=== PATIENT | male | born 1955 | race Caucasian/White ===

== ENCOUNTER 2023-05-23 08:38 | Day surgery (SDC) | payer OTHER ==
[2023-05-16 14:43] VITALS: BMI 25.0
[~2023-05-23 08:38] MED LIST: ATROPINE SULFATE 0.4 MG/ML 1 ML VIAL IM ONE; LIDOCAINE VISCOUS 300 MG/15 ML CUP MUCOUS MEM ONE; SODIUM CHLORIDE 0.9% 1,000 ML IV SCH
[2023-05-23] MEDS ORDERED: LACTATED RINGERS 1,000 ML IV ONE (09:10)
[2023-05-23] MEDS ORDERED: LACTATED RINGERS 1,000 ML IV SCH (09:19)
[2023-05-23] MEDS ORDERED: LIDOCAINE 1% (10MG/ML) FOR IV START INTRADERMA PRN (09:19)
[2023-05-23] MEDS ORDERED: NEOSTIGMINE 1 MG/ML 10 ML VIAL ONE (10:31)
[2023-05-23] MEDS ORDERED: MIDAZOLAM 2 MG/2 ML VIAL ONE (10:31)
[2023-05-23] MEDS ORDERED: ONDANSETRON 4 MG/2 ML VIAL ONE (10:31)
[2023-05-23] MEDS ORDERED: GLYCOPYRROLATE 0.2 MG/ML 2 ML VIAL ONE (10:31)
[2023-05-23] MEDS ORDERED: LIDOCAINE 2% INJ 20 MG/ML (2 ML VIAL) ONE (10:31)
[2023-05-23] MEDS ORDERED: SUCCINYLCHOLINE CHLORIDE 200 MG/10 ML VIAL IV ONE (10:31)
[2023-05-23] MEDS ORDERED: ROCURONIUM 10 MG/ML (5 ML VIAL) IV ONE (10:31)
[2023-05-23] MEDS ORDERED: PHENYLEPHRINE-0.9% NACL SYG 1,000 MCG/10 ML SYRINGE ONE (10:31)
[2023-05-23] MEDS ORDERED: PROPOFOL 10 MG/ML 20 ML VIAL IV ONE (10:31)
[2023-05-23] MEDS ORDERED: fentaNYL (PF) 50 MCG/ML 2 ML AMP ONE (10:31)
--- NOTE | 2023-05-23 10:44 | CT ---
EXAMINATION TYPE: CT Chest delio Kruse Protocol DATE OF EXAM: 05/23/2023 COMPARISON: None HISTORY: Navigational bronchoscopy CT DLP: 626 mGycm Automated exposure control for dose reduction was used. FINDINGS: Lobulated upper lobe mass measuring 3.3 x 2.4 cm. Subpleural nodularity in the right lower lobe measuring 9 mm. There is an additional left upper lobe pulmonary nodule measuring 9 mm. Multiple additional right superior segment right lower lobe pulmonary nodules are seen the largest me asuring 1.2 cm on axial image 21. There is a larger left lower lobe pulmonary mass measuring 2.5 cm. There is a large area of consolidation appears masslike in the left lower lobe measuring 8 cm. There is a small adjacent pleural effusion. Heart is enlarged there is atherosclerotic change aorta and coronary arteries. Trace pericardial flui d. There is pathologic adenopathy in mediastinum most noted in the AP window measuring 4.4 cm in short a xis. Numerous other enlarged lymph nodes are seen including the left hilum measuring short axis of 1. 6 cm. There is hypertrophic and degenerative changes of the spine. No definitive destructive lesions. There is a complicated lesion involving the upper pole the right kidney with calcification measuring 4.4 cm. Measures 42 Hounsfield units is not compatible simple cysts. There additionally is a calcific ation in the region of the paracaval region with abnormal soft tissue attenuation. Area of adenopathy not excluded. IMPRESSION: 1. MULTIPLE PULMONARY MASSES WITH PATHOLOGIC MEDIASTINAL AND HILAR LYMPHADENOPATHY SUSPICIOUS FOR MAL IGNANCY. 2. COMPLICATED UPPER POLE RIGHT RENAL MASS ONLY PARTIALLY INCLUDED ON EXAM BUT DOES NOT MEET THE CRIT ERIA OF A SIMPLE CYST. RECOMMEND CORRELATION WITH ULTRASOUND OR CAT SCAN TO ASSESS THE RIGHT KIDNEY F OR NEOPLASM
[2023-05-23 11:55] VITALS: TEMP 97.4
[2023-05-23 12:25] VITALS: RESP 16
--- NOTE | 2023-05-23 12:27 | PCN ---
PROCEDURE NOTE This is a Pulmonary/Critical Care procedure note. PROCEDURES PERFORMED: Navigational bronchoscopy with endobronchial transbronchial biopsies, endobronchial brushes, as well as transbronchial needle aspiration. ADMISSION NURSE: Dr. Donovan. There was informed consent and universal timeout. The patient's procedure was done in room #1. Dr. Fernando provided general anesthesia along with the CENTER RECEPTIONIST. PREOPERATIVE DIAGNOSIS: Probable kidney cancer with metastasis to the lungs. POSTOPERATIVE DIAGNOSIS: Probable kidney cancer with metastasis to the lungs. DESCRIPTION OF PROCEDURE: After the patient was adequately sedated and under the effects of general anesthesia and on the anesthesia machine, the bronchoscope was passed through the bronchoscope adapter connected to the endotracheal tube. Using the electromagnetic navigational bronchoscopy by [employer], we were able to do a transbronchial needle aspirations of subcarinal nodes. We made multiple passes, and there was no complication. We did get tissue. In addition, we attempted to use the navigational procedure to the navigation machine to biopsy a lesion in the right upper lobe, but could not localize this lesion, so no biopsies were done. In addition, there was an endobronchial lesion noted in the distal bronchus intermedius. We biopsied this lesion as well. This lesion looks suspicious for malignancy. Also, there was endobronchial disease in the left lower lobe. We did biopsies of this lesion in the left lower lobe as well, this was under direct visualization, and also did brushes and washes in the area of the left lower lobe. The patient tolerated the procedure well without complication. So, in review, we did endobronchial biopsies in the left lower lobe, brushes in the left lower lobe, and washes in the left lower lobe. There was a lesion obstructing the left lower lobe bronchus. In addition, we did endobronchial biopsies to the distal bronchus intermedius, and also transbronchial needle aspiration to the subcarinal node. The patient tolerated the procedure well. The patient's vital signs were stable throughout the procedure. All the material will be sent to the laboratory for analysis. There was no immediate complication. MMODL / IJN: [id number] /
[2023-05-23 12:46] VITALS: BP 117/66; PULSE 88
[2023-05-24 08:14] LABS: Appearance,BF Blood Tinged (Clear); RBC, Body Fluid 178750 (0-2000)
[2023-05-27 09:47] LABS: Nucleated Cells, Body Fluid 100 X 10*3/uL
== END 2023-05-23 12:57 | disposition home or self-care (01) ==
LOC: ORWHC2ENDO 08:38
PROVIDERS: ATTEND Internal Medicine Critical Care Medicine
DX: J98.4 Other disorders of lung (principal); I10 Essential (primary) hypertension; Z79.82 Long term (current) use of aspirin; Z79.899 Other long term (current) drug therapy
CPT/HCPCS: 88104; 88108; 88305; 89050; 87070; 87205; 87077; 87186; 71250; 31628; 31629; 31623; 31624; 31627; J2250; J0330; J2710; J2405; J3010; J2370; J2704; J2001

== ENCOUNTER → 2023-06-15 | Outpatient (CLI) | payer OTHER ==
--- NOTE | 2023-06-17 22:19 | PE ---
EXAMINATION TYPE: PET CT fusion skull to thigh DATE OF EXAM: 06/15/2023 COMPARISON: CT chest 05/23/2023 Prior PET/CT: None HISTORY: Solitary pulmonary nodule TECHNIQUE: Following the intravenous administration of 11.84 mCi of F-18 FDG, whole body images are performed from the skull base to the midthigh. Images are reviewed on the computer in the coronal, a xial, and sagittal planes. Reconstructed rotating images are created on independent workstation and reviewed on the computer. A localization and attenuation correction CT is performed in conjunction with the PET scan. DLP: 467.23 mGycm SCAN: Subsequent Blood glucose: 86 mg/dL Average Mediastinum SUV: 0.87 Average Liver SUV: 1.09 FINDINGS: NECK: No abnormal uptake THORAX: There is a focus of radiotracer within a mass adjacent to the aorta. Image 122. SUV measures 4.44. An additional focus of increased radiotracer is in the posterior lateral left lung. Image 113 S UV 4.24. Some additional uptake is within the mass, sample image 121 SUV 3.87 and more anteriorly 3.3 5. There is intermediate signal within the nodule within the lateral left lung base, image 120 SUV 1.2. Intermediate signal measuring 1.1 SUV is in the right posterior medial upper lung field, example imag e 84. Punctate nodule in the anterior right upper lung field image 81 has a density of 0.4. Nodule wi thin the anterior left midlung image 97 has an SUV of 0.3. Nodule within the lateral right lung image 23 has an SUV of 0.66 ABDOMEN: No abnormal uptake PELVIS: No abnormal uptake OSSEOUS STRUCTURES: No abnormal uptake Other: There are several areas of uptake which appear to be superficial on the right flank margin of uncertain etiology. Contamination is felt to be most likely previous appears to be external to the pa tient. Note is made of absence of significant radiotracer within the right kidney. LOCALIZATION CT: Right kidney appears atrophic. Prostate is prominent COMPARISON: Findings are similar to the recent CT IMPRESSION: 1. The left lower lobe lung mass has several smaller foci of uptake compatible with neoplasm. 2. There are multiple nodules and additional smaller masses within the bilateral lung corrales which aguirre ve low to intermediate nonsuspicious uptake. This may be low metabolic activity or nonneoplastic. 3. Scattered lymphadenopathy within the mediastinum without suspicious uptake.
== END | disposition home or self-care (01) ==
LOC: RADPETMAIN 11:36
PROVIDERS: ATTEND Internal Medicine Critical Care Medicine
DX: R91.8 Other nonspecific abnormal finding of lung field (principal); R59.0 Localized enlarged lymph nodes
CPT/HCPCS: 78815; A9552

== ENCOUNTER 2023-07-10 08:23 | Day surgery (SDC) | payer OTHER ==
[2023-07-10] MEDS ORDERED: HYDROmorphone 0.5 MG/0.5 ML SYRINGE IVP PRN (08:35)
[2023-07-10] MEDS ORDERED: ALPRAZolam 0.25 MG TAB PO PRN (08:35)
[2023-07-10 09:19] VITALS: TEMP 98.1
[2023-07-10 09:34] LABS: INR 1.1 (<1.2); Prothrombin Time 11.3 sec (9.0-12.0)
[2023-07-10 09:44] LABS: Mean Platelet Volume 7.9; Platelet Count 200 k/uL (150-450)
--- NOTE | 2023-07-10 10:45 | XR ---
EXAMINATION TYPE: XR chest 1V portable DATE OF EXAM: 07/10/2023 COMPARISON: 07/10/2023 HISTORY: Post lung biopsy TECHNIQUE: Single frontal view of the chest is obtained. FINDINGS: No sizable pneumothorax. Left lower lobe consolidation\mass and small effusion stable rela tive to the prior PET/CT of 06/15/2023. As the mediastinal and hilar prominence likely in the basis of adenopathy. Multiple pulmonary masses are seen. Underlying COPD and chronic interstitial lung diseas e suspected. IMPRESSION: No pneumothorax post lung biopsy.
--- NOTE | 2023-07-10 11:39 | CT ---
EXAMINATION TYPE: CT biopsy lung LT DATE OF EXAM: 07/10/2023 COMPARISON: 06/15/2023 HISTORY: Lung mass CT DLP: 728 mGycm The procedure is discussed with the patient, the risks, complications, benefits and alternatives, wer e discussed and any questions were answered. Informed consent was obtained. The patient is placed p yane on the CT table, prepped and draped in the usual sterile fashion. Utilizing a 22-gauge Chiba needle access into the left lower lobe mass was achieved with left lower l obe. Pathology confirmed adequate sample. All elements of maximal barrier technique were utilized. The patient remained stable throughout the procedure with no immediate postprocedural complication. IMPRESSION: 1. Successful CT guided fine needle aspiration of a left lower lobe lung mass
[2023-07-10 12:31] VITALS: BP 132/71; PULSE 99; RESP 18
--- NOTE | 2023-07-10 12:36 | XR ---
EXAMINATION TYPE: XR chest 1V portable DATE OF EXAM: 07/10/2023 COMPARISON: 07/10/2023 HISTORY: Postlung biopsy TECHNIQUE: Single frontal view of the chest is obtained. FINDINGS: No sizable pneumothorax. Left lower lobe consolidation mass and small effusion stable rela tive to the prior PET/CT of 06/15/2023. As the mediastinal and hilar prominence likely in the basis of adenopathy. Multiple pulmonary masses are seen. Underlying COPD and chronic interstitial lung diseas e suspected. IMPRESSION: 1. No pneumothorax. Stable multiple intrathoracic masses\adenopathy.
== END 2023-07-10 12:35 | disposition home or self-care (01) ==
LOC: RADPROMAIN 08:23
PROVIDERS: ATTEND Internal Medicine Critical Care Medicine
DX: R91.8 Other nonspecific abnormal finding of lung field (principal)
CPT/HCPCS: 32408; 36415; 71045; 85049; 85610; 88305

== ENCOUNTER 2023-07-15 09:46 | Day surgery (SDC) | payer OTHER ==
[2023-07-15 10:48] VITALS: TEMP 98
[2023-07-15] MEDS ORDERED: ATROPINE SULFATE 0.4 MG/ML 1 ML VIAL IM STA (11:12)
[2023-07-15 11:24] VITALS: RESP 16
[2023-07-15 12:30] VITALS: BP 148/68; PULSE 115
--- NOTE | 2023-07-15 12:42 | XR ---
EXAMINATION TYPE: XR chest 1V portable DATE OF EXAM: 07/15/2023 12:31 PM COMPARISON: Chest radiographs from 07/10/2023 TECHNIQUE: XR chest 1V portable Frontal view of the chest. CLINICAL INDICATION:Male, 68 years old with history of post left thoracentesis; FINDINGS: Lungs/Pleura: There remains small left pleural effusion. There is no evidence of right pleural effusi on, focal consolidation, or pneumothorax. Pulmonary vascularity: Unremarkable. Heart/mediastinum: Cardiomediastinal silhouette is unremarkable. Musculoskeletal: No acute osseous pathology. IMPRESSION: Small left pleural effusion no pneumothorax visualized.
[2023-07-16 03:22] LABS: Glucose, BF Source Pleural fluid; Glucose, Body Fluid 46 mg/dL; LDH, Body Fluid Source Pleural fluid; T. Protein, Body Fluid Source Pleural fluid; Total Protein, Body Fluid >3600 mg/dL
[2023-07-16 05:39] LABS: Appearance,BF Slightly Cloudy (Clear)
--- NOTE | 2023-07-17 15:29 | PCN ---
PROCEDURE NOTE PROCEDURE PERFORMED: Left-sided thoracentesis. PREOPERATIVE DIAGNOSIS: Left pleural effusion, rule out cancer. POSTOPERATIVE DIAGNOSIS: Left pleural effusion, rule out cancer. DESCRIPTION OF PROCEDURE: The posterior chest was marked by ultrasound. There were informed consent and universal time-out. The patient's procedure took place in third [facility]. Indication: Left pleural effusion. A time-out was completed verifying correct patient, procedure, site, positioning , and implant(s) or special equipment if applicable. Ultrasound guidance was used and appropriate fluid pocket was identified and marked. Patient was positioned, prepped and draped in usual sterile fashion. Lidocaine was used to anesthetize the area. A Thoracentesis catheter was introduced into the left pleural space, and 1600 mL of dark brown/bloody fluid was removed from the left pleural space. Blood loss was none. The patient tolerated the procedure well without any complications. The post-thoracentesis chest x-ray showed no evidence of pneumothorax. The fluid will be sent for analysis including cytology, microbiology, and chemistry. Chemistry will include glucose, protein, and LDH. Additional recommendations and suggestions are forthcoming. MMODL / IJN: [id number] /
== END 2023-07-16 10:17 | disposition home or self-care (01) ==
LOC: PROCWHC3 09:46
PROVIDERS: ATTEND Internal Medicine Critical Care Medicine
DX: J90 Pleural effusion, not elsewhere classified (principal); C64.9 Malignant neoplasm of unspecified kidney, except renal pelvis
CPT/HCPCS: 32555; 87798 ×3; 87496; 87498; 87529; 88108; 88305; 89050; 87502; 87634; 87070; 87205; 87075; 87116; 87102; 87206; 82945; 83615; 84157; 71045; 96372; 32554; J0461; 87252

== ENCOUNTER → 2023-07-15 | Outpatient (CLI) | payer OTHER ==
--- NOTE | 2023-07-15 10:54 | US ---
EXAMINATION TYPE: US chest DATE OF EXAM: 07/15/2023 COMPARISON: Chest radiograph same day. CLINICAL INDICATION: Male, 68 years old with history of J90 PLEURAL EFFUSION; SOB TECHNIQUE: Targeted ultrasound of the posterior lower Bilateral EXAM MEASUREMENTS: Right Pleural Effusion pocket size: 0 cm Left Pleural Effusion pocket size: 12 cm Left skin surface to fluid distance: 2.8 cm Left side marked for possible thoracentesis outside the dept. Pulmonologists are able to review the images in the patient?s EMR. IMPRESSIONS: Small left pleural effusion.
== END | disposition home or self-care (01) ==
LOC: RADUSWWP 09:15
PROVIDERS: ATTEND Internal Medicine Critical Care Medicine
DX: J90 Pleural effusion, not elsewhere classified (principal)
CPT/HCPCS: 76604

== ENCOUNTER → 2023-07-25 | Outpatient (CLI) | payer OTHER ==
[2023-07-25 16:07] LABS: African American GFR (CKD) 60 (>60 ml/min/1.73 sqM); Blood Urea Nitrogen 23 mg/dL (9-20); Non-African American GFR(CKD) 52 (>60 ml/min/1.73 sqM)
--- NOTE | 2023-07-26 08:31 | CT ---
EXAMINATION TYPE: CT chest w con CT DLP: 292.80 mGycm, Automated exposure control for dose reduction was used. DATE OF EXAM: 07/25/2023 4:32 PM COMPARISON: 07/10/2023 CT lung biopsy. PET/CT 06/15/2023. CLINICAL INDICATION:Male, 68 years old with history of R91.8 abn finding, abnormal lung exam and coug cheng TECHNIQUE: Multiple axial images were obtained through the chest. Sagittal and coronal reformats were created for review. Contrast used:80ml mL of Isovue 300 with IV Contrast (None if empty) Oral contrast used: (None if empty) FINDINGS: LUNGS/ PLEURA: Right upper lung dominant mass measuring 3.3 x 3.8 cm previously 3.0 x 3.4 cm. Additio nal scattered pulmonary nodules are seen throughout the lungs which appears stable from prior. There is a left sided small pleural effusion with associated atelectasis and consolidation changes. A nodul e seen in the left lung base anteriorly is surrounded by some consolidation changes. This limits eval uation for size on prior. AIRWAY: Patent and unremarkable. HEART: Size within normal limits. MEDIASTINUM: Enlarged lymph nodes within the thorax including the AP window measuring up to 3.7 cm, p reviously roughly similar given differences in measuring technique and slice selection. Right low par atracheal lymph node measuring 15 mm not significantly changed from prior. Right pulmonary hilum lymph node measuring up to 27 mm poorly delineated on prior PET without IV cont rast. VASCULATURE: No aortic aneurysm. MUSCULOSKELETAL: No acute osseous abnormalities SOFT TISSUES/LYMPH NODES: Unremarkable. LOWER NECK: No significant findings. UPPER ABDOMEN: Irregular appearance to the right kidney with mass partially visualized. IMPRESSION: 1. Overall the mediastinal lymph nodes appear grossly stable in size compared to PET/CT 06/06/2023. T he right upper lung dominant mass measures slightly larger. Other pulmonary nodules appear similar in size to prior. Findings could relate to #2 correlate with biopsy. 2. Partially visualized right renal mass similar to PET/CT, concerning for renal cell carcinoma with extension into the right renal vein. No other imaging of this is available besides the PET/CT withou t contrast. Consider CT/MRI renal mass protocol for further evaluation. 3. Left lower lung consolidation changes correlate for superimposed infection. There is small left p leural effusion. Findings communicated to Dr. Parminder Rivera DO on 07/26/2023 8:[address] Parminder Barboza.
== END | disposition home or self-care (01) ==
LOC: RADCTMAIN 15:28
PROVIDERS: ATTEND Internal Medicine Critical Care Medicine
DX: J90 Pleural effusion, not elsewhere classified (principal); N28.89 Other specified disorders of kidney and ureter; R91.8 Other nonspecific abnormal finding of lung field
CPT/HCPCS: 82565; 84520; 71260; 36415; Q9967

== ENCOUNTER 2023-08-01 12:34 | Day surgery (SDC) | payer OTHER ==
[2023-07-30 15:18] VITALS: BMI 24.4
[~2023-08-01 12:34] MED LIST changes: -ATROPINE SULFATE 0.4 MG/ML 1 ML VIAL IM ONE; +LACTATED RINGERS 1,000 ML IV SCH; -LIDOCAINE VISCOUS 300 MG/15 ML CUP MUCOUS MEM ONE; -SODIUM CHLORIDE 0.9% 1,000 ML IV SCH
[2023-08-01] MEDS ORDERED: ONDANSETRON 4 MG/2 ML VIAL ONE (13:08)
[2023-08-01] MEDS ORDERED: LIDOCAINE 1% (10MG/ML) FOR IV START INTRADERMA ONE (13:15)
[2023-08-01] MEDS ORDERED: DEXAMETHASONE SOD PHOSPHATE 4 MG/ML 1 ML VIAL IVP ONE (13:16)
--- NOTE | 2023-08-01 13:19 | CT ---
EXAMINATION TYPE: CT Chest delio Kruse Protocol DATE OF EXAM: 08/01/2023 COMPARISON: 05/23/2023 HISTORY: ION CHEST CT DLP: [address] of the chest was performed with lung and mediastinal window settings submitted for bron choscopic guidance.. The lack of contrast limits evaluation of the vascular, mediastinal and parench ymal structures including the upper abdomen. LUNGS: Right upper lobe mass seen medially measures approximately 3.1 x 2.3 cm. Several adjacent pulm onary nodules measuring 9.4 mm right upper lobe anteriorly and 1.2 cm right upper lobe. Several adjac ent smaller nodules are noted as well. Pulmonary nodule adjacent to the right heart border. Moderate left lower lobe opacity may reflect a combination of atelectasis and/or effusion. Additional underlyi ng mass is difficult to exclude given the lack of contrast. MEDIASTINUM/RUBY: Thoracic aorta is of normal caliber with limited evaluation given lack of contrast . The heart is not enlarged. AP window mediastinal mass measures 5 x 4.3 cm and may reflect conglome rate adenopathy. There is right paratracheal adenopathy noted as well as subcarinal adenopathy and pr obable right hilar adenopathy. UPPER ABDOMEN: Partially imaged and poorly characterized right renal mass. OTHER: No significant other abnormality. IMPRESSION: 1. Unenhanced CT for bronchoscopic assistance. 2 pulmonary right upper lobe mass as discussed with saroj maria. Conglomerate mass within the mediastinum felt to reflect adenopathy. Additional jt nopathy is noted.
[2023-08-01] MEDS ORDERED: ROCURONIUM 10 MG/ML (5 ML VIAL) IV ONE (14:22)
[2023-08-01] MEDS ORDERED: MIDAZOLAM 2 MG/2 ML VIAL ONE (14:22)
[2023-08-01] MEDS ORDERED: fentaNYL (PF) 50 MCG/ML 2 ML AMP ONE (14:22)
[2023-08-01] MEDS ORDERED: LIDOCAINE 2% INJ 20 MG/ML (2 ML VIAL) ONE (14:22)
[2023-08-01] MEDS ORDERED: SUCCINYLCHOLINE CHLORIDE 200 MG/10 ML VIAL IV ONE (14:22)
[2023-08-01] MEDS ORDERED: GLYCOPYRROLATE 0.2 MG/ML 2 ML VIAL ONE (14:22)
[2023-08-01] MEDS ORDERED: NEOSTIGMINE 1 MG/ML 10 ML VIAL ONE (14:22)
[2023-08-01] MEDS ORDERED: PROPOFOL 10 MG/ML 20 ML VIAL IV ONE (14:22)
--- NOTE | 2023-08-01 16:06 | FL ---
EXAMINATION TYPE: FL bronchoscopy DATE OF EXAM: 08/01/2023 COMPARISON: NONE HISTORY: TECHNIQUE: Fluoroscopy. FINDINGS: Fluoroscopic guidance was provided 2.4991 DAP IMPRESSION: As Above.
[2023-08-01 16:18] VITALS: TEMP 98
--- NOTE | 2023-08-01 16:21 | P.PCN ---
Date of Procedure: 08/01/23 Description of Procedure: Preoperative Diagnosis: Right upper lobe mass Left lower lobe atelectasis Mediastinal lymphadenopathy Postoperative Diagnosis: Right upper lobe mass Left lower lobe atelectasis, secondary to endobronchial tumor Mediastinal lymphadenopathy Procedure(s) Performed: Flexible bronchoscopy Robotic-assisted bronchoscopy and addition to radial ultrasound evaluation of the pulmonary mass in the right upper lobe Robotic-assisted transbronchial needle aspirate, transbronchial biopsies, transbronchial brushing of the right right upper lobe pulmonary mass in addition to a bronchioloalveolar lavage endobronchial biopsies, brushing and lavage of a EBUS TBNA of a station 4R left lower lobe mass and [address] Anesthesia: TRENT Surgeon: Austen Lemus Estimated Blood Loss (ml): 5cc Pathology: other Condition: stable Disposition: same day Operative Findings: A physical exam was performed. Informed consent was obtained from the patient after explaining all the risks (pneumothorax, life threatening bleeding, infection and adverse effects due to medications), benefits and alternatives to the procedure which the patient appeared to understand and so stated. The patient was connected to the monitoring devices. General anesthesia was induced and the patient was intubated by anesthesia. A final timeout was performed and the procedure confirmed by the attending staff bronchoscopist. The bronchoscope was inserted and the airway examined. The flexible bronchoscope was removed and the robotic bronchoscope was inserted. Complete airway examination was done. Examination of the right lung included the right mainstem bronchus, right upper lobe bronchus, bronchus intermedius, right middle lobe bronchus and the right lower lobe bronchus and the various 10 segments on the right and no significant abnormalities were identified. The bronchoscope was then removed to the left. Left mainstem bronchus and the left upper lobe bronchus was patent. Various segments in the left upper lobe and lingular segments were patent and within normal limits. Left lower lobe was obstructed with apparent necrotic endobronchial tumor and the various segments of the left lower lobe were not visualized. Registration was completed. I next guided the robotic bronchoscope using the navigation system into the right upper lobe posterior segment. Once in proper position, the bronchoscope was frozen. The radial EBUS probe was placed through the bronchoscope and confirmed abnormal u/s images vs normal lung. A needle was placed through the working channel and under fluoroscopic guidance, we sampled the area thought to have the mass twice. We then used a cloud biopsy pattern with ultrasound confirmation for 2 additional passes with the needle. U/S evaluation was then used to reconfirm location. Forceps were next in troduced through working channel and extended the appropriate distance and 6 transbronchial biopsies were performed using fluoroscopic guidance. The u/s probe was then reinserted to confirm location. When confirmed this process was repeated for a total of 6 transbronchial biopsies. After reassessment with EBUS, a brush was placed through the extendable working channel for 1 pass with fluoroscopic guidance. U/S evaluation was then used to confirm location. 40ml of saline was then instilled into the area of the lesion. The robotic bronchoscope was removed and the airway inspected with a flexible bronchoscope and 10 ml of effluent from the BAL was collected. The bronchoscope was then advanced to the left lower lobe. Left lower lobe bronchus was completely obstructed with an endobronchial tumor that was quite necrotic, irregular surface, pale looking and under direct visualization, endobronchial biopsies were done of the left lower lobe mass in addition to and the bronchial brushings and a bronchial lavage was also done with a total of 40 mL of fluid was infused into the left lower lobe and 20 mL was aspirated without any major difficulties. Fluoroscopic check for pneumothorax was negative upon completion of the procedure. There was 0 ml blood loss with the procedure. Following that, the endobronchial ultrasound was inserted for mediastinal lymph node evaluation. A complete examination is grossly patient's was done. The patient was found to have a 2.5 cm station 4R lymph node and 3.0 [address] Using a 22-gauge needle, transbronchial needle aspirate of the station 4R and 10R lymph node was done. A total of 3 passes were obtained from each station without any complications. Endobronchial ultrasound was removed. Flexible bronchoscope was inserted and regular suctioning was done. At the completion of the procedure, no residual secretions or bloody material within the airway. The bronchoscope was removed. The patient was extubated. FINDINGS: 1.The airways appeared normal 2 Successful navigation, ultrasonographic identification, and biopsies of right upper lobe pulmonary mass 3.The the radial ultrasound view was Concentric 4 TBNA of lymph node, station [address] 5 Biopsy of a left lower lobe mass under direct visualization RECOMMENDATIONS: Await pathology and cytology results The referring physician will be alerted to the results when available. The patient was advised to follow up with the referring physician with the biopsy results Patient will be called with results.
[2023-08-01] MEDS ORDERED: LACTATED RINGERS 1,000 ML IV ONE (16:45)
--- NOTE | 2023-08-01 16:48 | XR ---
EXAMINATION TYPE: XR chest 1V DATE OF EXAM: 08/01/2023 4:34 PM CLINICAL INDICATION:Male, 68 years old with history of post biopsy; COMPARISON: Chest radiographs from 07/07/2023. TECHNIQUE: XR chest 1V Frontal view of the chest. FINDINGS: Lungs/Pleura: Consolidation changes in the lung base. There is no evidence of pleural effusion, , or pneumothorax. Pulmonary vascularity: Unremarkable. Heart/mediastinum: Cardiomediastinal silhouette is unremarkable. Musculoskeletal: No acute osseous pathology. IMPRESSION: Similar left lower lung consolidation and/or airspace opacities. No evidence of pneumothorax.
[2023-08-01 17:03] VITALS: RESP 18
[2023-08-01 17:10] VITALS: BP 149/79; PULSE 112
== END 2023-08-01 17:30 | disposition home or self-care (01) ==
LOC: ORWHC2ENDO 12:34
PROVIDERS: ATTEND Internal Medicine Critical Care Medicine
DX: C79.02 Secondary malignant neoplasm of left kidney and renal pelvis (principal); C79.01 Secondary malignant neoplasm of right kidney and renal pelvis; J98.11 Atelectasis; N28.89 Other specified disorders of kidney and ureter; I10 Essential (primary) hypertension; A49.01 Methicillin susceptible Staphylococcus aureus infection, unspecified site; Z79.899 Other long term (current) drug therapy; Z87.891 Personal history of nicotine dependence; Z79.82 Long term (current) use of aspirin
CPT/HCPCS: 71045; 71250; 31628; 31629; 31625; 31623; 31624; 31652; J2250; J0330; J1100; J2710; J2405; J3010; J2704; J2001; S2900; 88104; 88108; 88305; 88341; 88342

== ENCOUNTER → 2023-11-19 | Outpatient (CLI) | payer OTHER ==
[2023-11-19 12:08] LABS: African American GFR (CKD) 72 (>60 ml/min/1.73 sqM); Blood Urea Nitrogen 21 mg/dL (9-20); Non-African American GFR(CKD) 62 (>60 ml/min/1.73 sqM)
--- NOTE | 2023-11-23 10:40 | CT ---
EXAMINATION TYPE: CT chest w con CT DLP: 307.50 mGycm, Automated exposure control for dose reduction was used. DATE OF EXAM: 11/19/2023 12:24 PM COMPARISON: CT chest with contrast 07/25/2023 . CLINICAL INDICATION:Male, 68 years old with history of C64.1 renal ca; PHH, obs for mets, rt renal ca , hypertension TECHNIQUE: Multiple axial images were obtained through the chest. Sagittal and coronal reformats were created for review. Contrast used:90ml mL of Isovue 300 with IV Contrast (None if empty) Oral contrast used: (None if empty) FINDINGS: LUNGS/ PLEURA: Slight decrease in size of small to moderate left pleural effusion. No right pleural e ffusion or pneumothorax seen. Improved aeration of the left lower lobe with some residual opacity suggesting atelectasis/consolidat ion. Inferior left upper lobe is better aerated, with the pulmonary nodule in the area now much tara r seen and looks to be smaller as described below. No acute lung infiltrate. There are areas of mild subpleural reticulation which may reflect scarring and/or subsegmental atelectasis. Nodules/masses: Right upper lobe solid mass measuring 2.1 x 1.9 cm image 22 series 4, was 3.8 x 3.3 c m. A 0.3 cm nodule right upper lobe image 19, was 0.8 cm. Nodule superior segment right lower lobe po sterior subpleural is 0.7 cm image 25, versus 1.15 cm before. Another immediately adjacent nodular de nsity anteriorly is no longer perceptible, and was 0.8 cm. A 0.8 cm subpleural semicircular nodule la terally in the right lower lobe on image 35 is stable. A posterior right lower lobe nodule image 44 m easures 0.9 cm, was 1.3 cm. Other nearby tiny nodular densities appear slightly smaller. In the mid left upper lobe, reference image 29, the previous nodule (prior image 25) is no longer see n, and had measured 1 cm. In the inferior left upper lobe, there is a 1.5 x 1.3 cm nodule image 45, which was partially obscure d by greater atelectasis on the prior exam but was about 2.9 x 2.8 cm. No new nodule, mass, or consol idation is seen. AIRWAY: Central airways are patent. Left lower lobe bronchi taper into the areas of consolidated lung . LOWER NECK: Unremarkable thyroid. Small lymph nodes seen, appear less prominent and conspicuous than before.. MEDIASTINUM: Overall the mediastinal and right hilar adenopathy has decreased in size. For example, a n AP window node seen on the left image 24 measures 1.7 cm short axis and was previously 3.7 cm. Righ t lower anterior paratracheal node is 1.2 cm and was 1.6 cm. Right hilar node measuring 1.9 cm, was 2 .7 cm before. Multiple nonenlarged nodes in the mid to superior mediastinum, appear decreased size an d conspicuity from prior. No new or enlarging adenopathy is shown. HEART: Mild to moderate cardiomegaly. Mild to moderate coronary artery calcification and/or stents. T here is a small pericardial effusion. VASCULATURE: Mild atherosclerotic calcifications of the aorta and branches. Ascending aorta is 3.3 C M, descending is 2.9 CM. Aorta is considered mildly ectatic in the ascending segment. Main pulmonar y trunk is enlarged at 3.4 cm. Vessels otherwise not further assessed without contrast. SOFT TISSUES/LYMPH NODES: Similar mild bilateral gynecomastia. No new or enlarging chest wall mass or adenopathy. UPPER ABDOMEN: Partially redemonstrated is enlarged, engorged IVC with multiple very prominent and en hancing serpentine structures in the right renal fossa, which could be vessels related to hypervascul ar tumor. There is a small radiodensity seen in the region which may be postprocedural. Only a small portion of the known right renal mass is seen. MUSCULOSKELETAL: No acute osseous abnormality. Mild disc degeneration changes are present throughout the included thoracolumbar spine. IMPRESSION: 1. Overall findings are consistent with a significant favorable response to therapy. 2. Multiple bilateral pulmonary nodules and masses, have decreased in size. No new or enlarging nodu les. 3. Decreased size of multiple previously enlarged mediastinal and right hilar nodes. No new or enlar ging nodes. 4. Slight decrease in size of small to moderate left pleural effusion. The left lower lobe and infer ior portion of the left upper lobe appear better aerated. 5. Dilated pulmonary artery, can be seen with pulmonary hypertension. 6. Partially visualized right upper quadrant hypervascularity and right renal mass. If this has not already been fully evaluated, dedicated MRI or CT of the kidneys would be advised.
== END | disposition home or self-care (01) ==
LOC: RADCTMAIN 11:28
PROVIDERS: ATTEND Internal Medicine Hematology & Oncology
DX: C64.1 Malignant neoplasm of right kidney, except renal pelvis (principal); R91.8 Other nonspecific abnormal finding of lung field; J90 Pleural effusion, not elsewhere classified; N28.89 Other specified disorders of kidney and ureter; I27.20 Pulmonary hypertension, unspecified
CPT/HCPCS: 82565; 84520; 71260; 36415; Q9967

== ENCOUNTER → 2024-02-27 | Outpatient (CLI) | payer OTHER ==
[2024-02-27 12:41] LABS: African American GFR (CKD) 81 (>60 ml/min/1.73 sqM); Blood Urea Nitrogen 26 mg/dL (9-20); Non-African American GFR(CKD) 70 (>60 ml/min/1.73 sqM)
--- NOTE | 2024-02-27 14:14 | CT ---
EXAMINATION TYPE: CT chest w con DATE OF EXAM: 02/27/2024 COMPARISON: 12-11 HISTORY: Renal cell ca CT DLP: 299.7 mGycm, Automated exposure control for dose reduction was used. CONTRAST: Performed injected with 100 mL of Isovue 300. TECHNIQUE: Axial images were obtained at 5 mm thick sections. Reconstructed images are reviewed on [employer] computer in the coronal plane. FINDINGS: Portion of the thyroid visualized is normal. There may be a punctate 0.3 cm nodule anterior right upper lobe. Series 3 image 20. This was present previously. A 2.0 cm nodules in the posterior medial right upper lung field. Series 3 image 20. This appears stab le. 0.6 cm subpleural nodule right lateral lung base appears stable, series 3 image 35. There is a left lower lobe consolidation with air bronchograms. Underlying masses within the differen tial. This area is present previously and appears stable. Previous pleural effusion is evident. A 1.5 cm right hilar lymph node is present. There is a 0.9 cm pretracheal lymph node present. The asc ending aorta diameter at the level of the main pulmonary artery is 3.7 cm. The main pulmonary artery diameter at the bifurcation is 3.2 cm. Moderate to large pericardial effusion is present. Limited CT sections are obtained through the upper abdomen. There is a 3.6 cm cystlike area on the po sterior right upper pole kidney. Right upper pole has an irregular enhancing mass within the field-of -view. Finding is stable from comparison. Left kidney appears normal. IMPRESSION: 1. Stable appearance of left lower lobe consolidation. Underlying mass may be present. 2. Stable small left pleural effusion. 3. Large pericardial effusion. 4. Scattered stable lung nodules
== END | disposition home or self-care (01) ==
LOC: RADCTMAIN 11:56
PROVIDERS: ATTEND Internal Medicine Hematology & Oncology
DX: C64.1 Malignant neoplasm of right kidney, except renal pelvis (principal); D69.59 Other secondary thrombocytopenia; I10 Essential (primary) hypertension; J90 Pleural effusion, not elsewhere classified; I31.39 Other pericardial effusion (noninflammatory); R91.8 Other nonspecific abnormal finding of lung field
CPT/HCPCS: 82565; 84520; 71260; 36415; Q9967

== ENCOUNTER → 2024-03-04 | Outpatient (CLI) | payer OTHER ==
--- NOTE | 2024-03-04 17:50 | CA ---
Transthoracic Echo Report Name: Rony Medina Age: 68 Gender: M : 1955 Exam Date: 03/04/2024 13:55 Exam Location: [facility] Ht (in): 72 Wt (lb): 165 Ordering Physician: Lori Lewis MD Attending/Referring Phys: Lori Lewis MD Playground Attendant Aranza Garrido RDCS Procedure CPT: Indications: Z01.818 ENCOUNTER FOR OTHER PREPROCEDURAL EXAMINAT Cardiac Hx: Technical Quality: Good Contrast 1: Total Dose (mL): Contrast 2: Total Dose (mL): MEASUREMENTS (Male / Female) Normal Values 2D ECHO LV Diastolic Diameter PLAX 6.3 cm 4.2 - 5.9 / 3.9 - 5.3 cm LV Systolic Diameter PLAX 5.5 cm IVS Diastolic Thickness 1.8 cm 0.6 - 1.0 / 0.6 - 0.9 cm LVPW Diastolic Thickness 1.3 cm 0.6 - 1.0 / 0.6 - 0.9 cm LV Relative Wall Thickness 0.5 RV Internal Dim ED PLAX 4.4 cm LV Diastolic Volume MOD 4C 217.2 cm??? LV Systolic Volume MOD 4C 120.8 cm??? LV Ejection Fraction MOD 4C 44.4 % LV Cardiac Index MOD 4C 4847.0 cm???/min???m??? LV Diastolic Length 4C 8.9 cm LV Systolic Length 4C 7.3 cm LA Volume 114.1 cm??? 18 - 58 / 22 - 52 cm??? LA Volume Index 58.6 cm???/m??? 16 - 28 cm???/m??? M-MODE LV Diastolic Diameter MM 6.9 cm 4.2 - 5.9 / 3.9 - 5.3 cm LV Systolic Diameter MM 5.5 cm LV Cardiac Index MM Teich 5169.6 cm???/min???m??? IVS Diastolic Thickness MM 1.6 cm 0.6 - 1.0 / 0.6 - 0.9 cm LVPW Diastolic Thickness MM 1.5 cm 0.6 - 1.0 / 0.6 - 0.9 cm LV Relative Wall Thickness MM 0.4 0.24 - 0.42 / 0.22 - 0.42 LV Mass Index MM 282.5 g/m??? 49 - 115 / 43 - 95 g/m??? Aortic Root Diameter MM 3.1 cm LA Systolic Diameter MM 5.3 cm LA Ao Ratio MM 1.7 AV Cusp Separation MM 2.4 cm DOPPLER AV Peak Velocity 226.8 cm/s AV Peak Gradient 20.6 mmHg AV Mean Velocity 145.4 cm/s AV Mean Gradient 9.5 mmHg AV Velocity Time Integral 38.2 cm LVOT Peak Velocity 155.1 cm/s LVOT Peak Gradient 9.6 mmHg LVOT Velocity Time Integral 23.7 cm MV Peak Velocity 158.4 cm/s MV Peak Gradient 10.0 mmHg MV Mean Velocity 114.3 cm/s MV Mean Gradient 5.9 mmHg MV Velocity Time Integral 30.0 cm MV Area PHT 4.1 cm??? Mitral E Point Velocity 173.6 cm/s Mitral A Point Velocity 0.6 cm/s Mitral E to A Ratio 291.9 MV Deceleration Time 185.3 ms MV E' Velocity 10.0 cm/s Mitral E to MV E' Ratio 17.3 TR Peak Velocity 330.5 cm/s TR Peak Gradient 43.7 mmHg Right Atrial Pressure 20.0 mmHg Pulmonary Artery Systolic Pressu 63.7 mmHg Right Ventricular Systolic Press 63.7 mmHg FINDINGS Left Ventricle Severely increased left ventricular mass. Mildly decreased fractional shortening. Moderately decreased midwall fractional shortening. Mildly increased left ventricular diastolic diameter. Moderately increased left ventricular wall thickness. Reduced global left ventricular systolic function. Left ventricular ejection fraction is estimated at-40 %. Abnorma LV global strain 11.3% Right Ventricle Moderate right ventricular dilatation. Severe pulmonary hypertension. Right ventricular systolic pressure estimated at 64 mm hg. Right Atrium Mild right atrial dilatation. Left Atrium Severely increased left atrial volume. Moderately increased left atrial area. Mitral Valve Structurally normal mitral valve. [id number] mitral regurgitation. Posteriorly directed mitral regurgitation jet. Aortic Valve Trileaflet aortic valve. No aortic valve stenosis or regurgitation. Tricuspid Valve Structurally normal tricuspid valve. [id number] tricuspid regurgitation. Pulmonic Valve Structurally normal pulmonic valve. Trace pulmonic regurgitation. Pericardium Small pericardial effusion. No Respiratory variation of tricuspid flow and of mitral flow. Aorta Normal size aortic root and proximal ascending aorta. CONCLUSIONS Moderate LV systolic dysfunction with an ejection fraction of 40% Moderate to severe mitral regurgitation Mild to moderate tricuspid regurgitation Moderate amount of pericardial effusion without any evidence of [place] not Previewed by: Dr. Hal Hussein MD (Electronically Signed) Final Date: 04 March 2024 17:49
== END | disposition home or self-care (01) ==
LOC: RADECHMAIN 13:34
PROVIDERS: ATTEND Internal Medicine Hematology & Oncology
DX: Z01.810 Encounter for preprocedural cardiovascular examination (principal); I34.0 Nonrheumatic mitral (valve) insufficiency; I36.1 Nonrheumatic tricuspid (valve) insufficiency; I31.39 Other pericardial effusion (noninflammatory); I51.89 Other ill-defined heart diseases
CPT/HCPCS: 93306

== ENCOUNTER → 2024-05-26 | Outpatient (CLI) | payer OTHER ==
[2024-05-26 11:17] LABS: African American GFR (CKD) 76 (>60 ml/min/1.73 sqM); Blood Urea Nitrogen 43 mg/dL (9-20); Non-African American GFR(CKD) 66 (>60 ml/min/1.73 sqM)
--- NOTE | 2024-06-02 12:49 | CT ---
EXAMINATION TYPE: CT ChestAbdPelvis w con DATE OF EXAM: 05/26/2024 INDICATION: Renal cell ca COMPARISON: CT DLP: 800.4 mGycm CONTRAST: Performed with Oral Contrast and with IV Contrast, patient injected with 100ml mL of Isovue 300. TECHNIQUE: Axial images at 5 mm thick sections. Reconstructed images in the coronal plane. Delayed images through the kidneys. FINDINGS: CT CHEST: Portion of the thyroid visualized is normal. There is a 1.0 cm long density in the posterior left upper lung field. This is new from comparison at electasis or metastasis could be considered. Bibasilar dependent traits are present, likely on the ba sis of atelectasis. Small left pleural effusion is present. There is a consolidation with air broncho grams in the left base, present previously. No enlargement is evident. There is a 1.5 cm right hilar node. This was present previously and is stable. Subcarinal increased d ensity is present. A 1.3 cm lymph node may be present. This is smaller than comparison left infrahila r soft tissue density 0.1 cm. This is smaller than comparison Multiple small lymph nodes are present. The ascending aorta diameter at the level of the main pulmonary artery is 3.4 cm. The main pulmonary artery diameter at the bifurcation is 3.2 cm. Small pericardial effusion is presentrrr CT ABDOMEN: Liver: Normal Spleen: Normal Pancreas: Normal Adrenal glands: The adrenal glands are normal. Gallbladder: Normal Kidneys: No masses are evident. There is a 0.2 cm calcification upper pole right kidney. There is benito e surrounding hypodensity. This could be focal hydronephrosis cyst. There appears to be some delayed excretion on the right kidney compared to the left. Left renal cortical cyst is present in the mid medial portion measuring 1.7 cm. Delayed images were obtained through the kidneys, which remain othe rwise unremarkable. Aorta: Vascular calcification is within the aorta. Inferior vena cava: Normal. CT PELVIS: Periaortic adenopathy is presentr which is not enlarged by measurement criteria. Some retr ocaval adenopathy appears to be present. There is an enlarged retrocrural lymph node measuring 0.9 cm . Normal less than 0.5 cm. This may be new comparison. There is some moderate free fluid within the pelvis. Loops of bowel within the abdomen and pelvis are normal. There are loops of bowel which are incom pletely distended or lack oral contrast limiting their evaluation. Appendix: Normal as visualized. Urinary bladder: Normal. Genitourinary structures: Prostate is prominent is inferior impression on the urinary bladder. Osseous structures: No suspicious lytic or sclerotic lesions. IMPRESSION: 1. There is some increasing periaortic adenopathy. A new enlarged lymph nodes in the retrocrural spac e. Hilar and mediastinal adenopathy present previously appear stable. 2. Some improvement of the consolidation in the left lower lobe. 3. Delayed excretion from the right kidney. Kidney appears somewhat atrophic. Findings are stable fro m comparison. 3. Prominent prostate with some inferior impression on the urinary bladder. 4. Moderate free fluid within the pelvis. Some minimal ascites in the upper abdomen. 5 small bilatera l pleural effusions with adjacent compressive atelectasis.
== END | disposition home or self-care (01) ==
LOC: RADCTMAIN 10:43
PROVIDERS: ATTEND Internal Medicine Hematology & Oncology
DX: J90 Pleural effusion, not elsewhere classified (principal); J98.11 Atelectasis; N32.89 Other specified disorders of bladder; C64.1 Malignant neoplasm of right kidney, except renal pelvis; I31.39 Other pericardial effusion (noninflammatory); I34.0 Nonrheumatic mitral (valve) insufficiency; D69.59 Other secondary thrombocytopenia; R18.8 Other ascites; R94.4 Abnormal results of kidney function studies
CPT/HCPCS: 82565; 84520; 71260; 74177; 36415; Q9967

== ENCOUNTER → 2024-09-08 | Outpatient (CLI) | payer OTHER ==
[2024-09-08 11:24] LABS: African American GFR (CKD) 85 (>60 ml/min/1.73 sqM); Blood Urea Nitrogen 38 mg/dL (9-20); Non-African American GFR(CKD) 74 (>60 ml/min/1.73 sqM)
--- NOTE | 2024-09-08 15:29 | CT ---
EXAMINATION TYPE: CT ChestAbdPelvis w con CT DLP: 742.40 mGycm, Automated exposure control for dose reduction was used. DATE OF EXAM: 09/08/2024 12:54 PM COMPARISON: CT chest and pelvis 05/26/2024, CT chest 02/27/2024, 11/19/2023, 08/01/2023, 07/25/2023, PET/CT CLINICAL INDICATION:Male, 69 years old with history of C64.1 renal cell ca; PHH, Hx renal cell ca. Ro utine follow up Technique: Multiple axial images of the chest, abdomen, and pelvis were obtained following the intrav enous administration of 100 mL Isovue-300. Oral contrast was administered. Two-dimensional coronal an d sagittal reconstructions were obtained. Findings: CHEST: LUNGS/ PLEURA: No pneumothorax. Decrease trace left pleural effusion. Development of bilateral lower lobe consolidation with air bronchograms. New left apical nodular densities measuring 1.2 cm (series 4, image 13) and pleural-based left apical measure 1.6 cm (series 4, series 13). Right upper lobe nod ular density measuring 8 mm (series 4, 17). Additional patchy peripheral nodular densities identified within the posterior bilateral upper lobes and superior segments of the lower lobes. AIRWAY: Patent and unremarkable.. HEART: Moderate cardiomegaly. No pericardial effusion. MEDIASTINUM: Stable enlarged right hilar 1.6 cm lymph node. Additional few mildly prominent/enlarged mediastinal lymph nodes. VASCULATURE: No aortic aneurysm. Reflux of contrast into the IVC. MUSCULOSKELETAL: No acute osseous abnormalities. SOFT TISSUES/LYMPH NODES: Unremarkable. LOWER NECK: No significant findings. ABDOMEN: ABDOMEN LIVER: Unremarkable GALLBLADDER AND BILE DUCTS: Unremarkable. PANCREAS: Unremarkable. SPLEEN: Unremarkable. ADRENAL GLANDS: Unremarkable. KIDNEYS AND URETERS: No evidence of hydronephrosis and no left renal calculi. Stable medial left christal l 1.6 cm cyst. Nonobstructive right upper pole 4 mm calculus. Similar abnormal appearance of the right kidney with atrophy. Similar right upper pole 3.7 cm lesion not consistent with a simple cyst. Prominent enhancing right arterial and venous vasculature. Multipl e surrounding collateral vessels identified. PELVIS BLADDER: Incompletely distended but grossly unremarkable. REPRODUCTIVE: Prostate is enlarged in size measuring 5.8 cm in transverse dimension. This indents upo n the urinary bladder base. ABDOMEN & PELVIS STOMACH AND BOWEL: Stomach and duodenum are unremarkable. Enteric contrast reaches the rectum. No foc al bowel wall thickening or surrounding inflammatory changes. No evidence of bowel obstruction. PERITONEUM: No evidence of pneumoperitoneum or free fluid. VASCULATURE: Mild the moderate atherosclerotic calcifications are present throughout the abdominal ao rta and its branches. Pelvic phleboliths. Dilated IVC. MUSCULOSKELETAL: No acute osseous abnormalities. Similar indeterminate patchy sclerotic appearance in volving the left iliac crest. No new suspicious osseous lesions. LYMPH NODES: No evidence for lymphadenopathy. SOFT TISSUE/ABDOMINAL WALL: Unremarkable IMPRESSION: 1. New scattered nodular opacities within the upper lungs. Development of bilateral lower lobe consol idation with air bronchograms. Raises concern for metastasis and/or infectious/inflammatory process. Consider further evaluation with PET/CT. 2. Decrease trace left pleural effusion. 3. Similar mediastinal and right hilar adenopathy from most recent CT however decreased from prior PE T/CT. Demonstrated low-level FDG uptake in prior PET/CT. 4. Similar abnormal appearance to the right kidney with atrophy and right upper pole lesion not consi stent with a cyst. Similar enhancing dilated renal artery and veins with surrounding collaterals and dilated IVC. Highly concerning for arteriovenous malformation. Reported history of renal cell carcino ma. Difficult to tell reported renal cell carcinoma without remote prior contrast imaging. Demonstrat ed low level uptake on prior PET/CT. 5. Cardiomegaly with findings suggesting right heart dysfunction. 6. Prostatomegaly. [facility], , 09/08/2024 3:27 PM
== END | disposition home or self-care (01) ==
LOC: RADCTMAIN 10:44
PROVIDERS: ATTEND Internal Medicine Hematology & Oncology
CPT/HCPCS: 36415; 71260; 74177; 82565; 84520

== ENCOUNTER → 2024-10-21 | Outpatient (CLI) | payer OTHER ==
[2024-10-21 11:06] LABS: African American GFR (CKD) >90 (>60 ml/min/1.73 sqM); Blood Urea Nitrogen 29 mg/dL (9-20); Non-African American GFR(CKD) 82 (>60 ml/min/1.73 sqM)
--- NOTE | 2024-10-22 19:50 | CT ---
EXAMINATION TYPE: CT chest w con DATE OF EXAM: 10/21/2024 11:27 AM COMPARISON: 09/08/2024 CLINICAL INDICATION: Male, 69 years old with history of C64.1 KIDNEY CANCER, KIDNEY CA TECHNIQUE: Axial images were obtained at 5 mm thick sections. Reconstructed images are reviewed on t he computer in the coronal plane. Contrast used:100 mL of Isovue 300 with IV Contrast, (none if empty) Oral contrast used: (none if empty) CT DLP: 255.1 mGycm, Automated exposure control for dose reduction was used. FINDINGS: Portion of the thyroid visualized is normal. Bibasilar consolidations are present present previously with a similar appearance. Fibrosis and neopl asm within the differential some pleural thickening is present on right, present previously. There is some irregular densities within the posterior left apex. These appear somewhat smaller than the comparison study. There is a 1.0 cm right hilar lymph node present. Adjacent similar sized lymph node may be present. T his appears to be present previously and appears smaller on the current exam. The ascending aorta diameter at the level of the main pulmonary artery is 3.9 cm. The main pulmonary artery diameter at the bifurcation is 3.[address] sections are obtained through the upper abdomen. There may be a infarcted upper pole left kidney. This could be related to the patient's known renal cancer. There is a cystlike area measuring 3.2 cm the superior pole. This was present previously measuring 3.7 cm. Right kidney appearance is s imilar to the comparison There is persistent dilatation of the inferior vena cava near the diaphragm. IMPRESSION: 1. Mild prominence of right hilar lymphadenopathy, diminished in size from comparison. 2. Stable appearance of the right kidney. 3. Previous left apical densities are smaller than on the comparison. 4. No new suspicious changes to suggest new metastatic disease. [facility], Workstation: [id number], 10/22/2024 7:48 PM
== END | disposition home or self-care (01) ==
LOC: RADCTMAIN 10:11
PROVIDERS: ATTEND Internal Medicine Hematology & Oncology
DX: I31.39 Other pericardial effusion (noninflammatory) (principal); I34.0 Nonrheumatic mitral (valve) insufficiency; C64.1 Malignant neoplasm of right kidney, except renal pelvis; D69.59 Other secondary thrombocytopenia; R59.0 Localized enlarged lymph nodes
CPT/HCPCS: 82565; 84520; 71260; 36415; Q9967

== ENCOUNTER → 2025-01-12 | Outpatient (CLI) | payer OTHER ==
[2025-01-12 11:46] LABS: African American GFR (CKD) 78 (>60 ml/min/1.73 sqM); Blood Urea Nitrogen 36 mg/dL (9-20); Non-African American GFR(CKD) 67 (>60 ml/min/1.73 sqM)
--- NOTE | 2025-01-12 13:58 | CT ---
EXAMINATION TYPE: CT ChestAbdPelvis w con DATE OF EXAM: 01/12/2025 12:35 PM COMPARISON: 10/21/2024 CLINICAL INDICATION: Male, 69 years old with history of C64.1 MALIGNANT NEOPLASM OF RIGHT KIDNEY, EXC EPT R, f/u renal ca TECHNIQUE: CT ChestAbdPelvis w con , with sagittal coronal reformats. If MIP/3-D images were created, there are created on a separate workstation. Contrast used:100 mL of Isovue 300 with IV Contrast, (none if empty) Oral contrast used: without Oral Contrast (none if empty) CT DLP: 786.5 mGycm, Automated exposure control for dose reduction was used. FINDINGS: CT CHEST: Portion of the thyroid visualized is normal. There may be some atelectatic changes at the left base. Some bronchiectasis may be present at the rig ht lung base. Some pulmonary fibrosis could be considered. Findings were present previously and appea rs similar. Mild atelectasis within the dependent right lung base. A prior medial left apical density has diminished in size over the interval. Right hilar lymph node has enlarged to 1.4 cm. Previous 1.1 cm. The ascending aorta diameter at the level of the main pulmonary artery is 3.6 cm. The main pulmonary artery diameter at the bifurcation is 3.[address] ABDOMEN: Liver: Normal Spleen: Normal Pancreas: Normal Adrenal glands: The adrenal glands are normal. Gallbladder: Normal Kidneys: No hydronephrosis is present. Right kidney appears irregular. There is a large complex richar earing hypodense mass at the superior medial pole measuring 3.7 cm. This has enlarged from comparison . Previous measurement 3.2 cm Aorta: Vascular calcification is within the aorta. Inferior vena cava: Normal. CT PELVIS: Loops of bowel within the abdomen and pelvis are normal. The study is without oral contrast limit ing bowel evaluation. Appendix: Normal as visualized. Urinary bladder: Normal. Genitourinary structures: Very large prostate which has inferior impression on the urinary bladder. Osseous structures: No suspicious lytic or sclerotic lesions. IMPRESSION: 1. Complex mass right renal mass has enlarged from comparison. 2. Enlarging right hilar lymph node. 3. Left apical density has diminished from comparison [facility], , 01/12/2025 1:56 PM
== END | disposition home or self-care (01) ==
LOC: RADCTMAIN 11:00
PROVIDERS: ATTEND Internal Medicine Hematology & Oncology
DX: C64.1 Malignant neoplasm of right kidney, except renal pelvis (principal); N28.89 Other specified disorders of kidney and ureter; R59.9 Enlarged lymph nodes, unspecified; D69.59 Other secondary thrombocytopenia; I34.0 Nonrheumatic mitral (valve) insufficiency; I31.39 Other pericardial effusion (noninflammatory); I10 Essential (primary) hypertension
CPT/HCPCS: 82565; 84520; 71260; 74177; 36415; Q9967

== ENCOUNTER → 2025-04-06 | Outpatient (CLI) | payer OTHER ==
[2025-04-06 14:02] LABS: African American GFR (CKD) 73 (>60 ml/min/1.73 sqM); Blood Urea Nitrogen 33 mg/dL (9-20); Non-African American GFR(CKD) 63 (>60 ml/min/1.73 sqM)
--- NOTE | 2025-04-06 15:58 | CT ---
EXAMINATION TYPE: CT ChestAbdPelvis w con DATE OF EXAM: 04/06/2025 COMPARISON: 01/12/2025 CLINICAL INDICATION: Male, 69 years old with history of C64.[address] DLP: 985.10 mGycm Automated exposure control for dose reduction was used. CONTRAST: CT scan of the chest, abdomen and pelvis is performed with Oral Contrast and with IV Contrast, patien t injected with 100 ml mL of Isovue 300. FINDINGS: CT chest: There is a stable 14 mm pleural-based nodule/mass in the right upper lobe medially. There are a few s mall stable groundglass opacities in the left upper lobe. There is marked chronic interstitial scarring and atelectasis with marked bronchiectasis in the left lower lobe. There are mild apical interstitial changes with mild bronchiectasis in the right lower lo be. There is no pleural effusion or pneumothorax. There is a stable 22 mm right hilar lymph node. There is no mediastinal adenopathy. There are no focal osseous lesions. . CT abdomen and pelvis: Gallbladder is normal without distention, pericholecystic fluid, wall thickening or gallstone. There is no biliary ductal dilatation. There is no focal mass or organomegaly involving the liver, pancreas, spleen or adrenal glands.. The large heterogeneous, partly hypodense, partially calcified right renal mass extending to the inf erior vena cava is again seen and stable. Greatest dimension is stable and measures approximately 6.5 cm. It is highly suspicious for malignancy. There are no left renal calcifications, solid left renal masses or hydronephrosis. There is no definite retroperitoneal adenopathy. The bowel loops are normal in caliber and there is no dilatation or obstruction. No inflammatory martinez ges identified in the bowel wall and mesentery. There is no free intracranial air or fluid. There is no pelvic mass or adenopathy. There is no free fluid within the pelvis. There is marked prostatic hypertrophy. No focal osseous lesions are seen. Soft tissue the abdomen and pelvis are normal. IMPRESSION: 1. Stable heterogeneous large right renal mass highly suspicious for malignancy. 2. Stable chronic changes in the lung bases described above. 3. Stable pleural-based right upper lobe nodule. 4. Stable 22 mm right hilar lymph node. 5. Marked prostatic hypertrophy. 6. No focal osseous lesions. [facility], , 04/06/2025 3:56 PM
== END | disposition home or self-care (01) ==
LOC: RADCTMAIN 13:10
PROVIDERS: ATTEND Internal Medicine Hematology & Oncology
DX: C64.1 Malignant neoplasm of right kidney, except renal pelvis (principal); I10 Essential (primary) hypertension; D69.59 Other secondary thrombocytopenia; I34.0 Nonrheumatic mitral (valve) insufficiency; I31.39 Other pericardial effusion (noninflammatory); N40.0 Benign prostatic hyperplasia without lower urinary tract symptoms; N28.89 Other specified disorders of kidney and ureter; R91.1 Solitary pulmonary nodule; R59.9 Enlarged lymph nodes, unspecified
CPT/HCPCS: 82565; 84520; 71260; 74177; 36415; Q9967